=== PATIENT | female | born 2000 | race Caucasian/White ===

== ENCOUNTER 2019-03-11 05:25 | Inpatient (IN) | payer OTHER ==
[~2019-03-11] VITALS: Ht 162.6 cm; Wt 56.7 kg
[2019-03-11 05:26] VITALS: BP 128/83
[2019-03-11 06:00] LABS: HEMATOCRIT 41.6 % (37.0-47.0); HEMOGLOBIN 14.5 gm/dL (12.0-15.0); MCH 31.8 pg (26.0-34.0); MCHC 34.8 g/dL (28.0-37.0); MCV 91.5 fL (80.0-100.0); MPV 8.3 fl. (7.2-11.1); RBC 4.55 mil/uL (4.20-5.00); RDW-CV 13.1 % (10.5-14.5); WBC 10.3 thou/uL (4.0-11.0)
--- NOTE | 2019-03-11 06:13 | NUR ---
SPOKE TO HUNTER AT [facility], PATIENT OVERDOSED FROM [facility] AT 0400, HUNTER FAXED A REPORT INCLUDING TO MONITOR EKG, AND OBSERVE FOR 4 HOURS AND WATCH FOR HYPOTENSION, QT PROLONATION, SEIZURES AND MANAGER HARBOR CHANGES WILL CONTINUE TO MONITOR
[2019-03-11 06:19] LABS: URINE BILIRUBIN NEGATIVE (Negative); URINE BLOOD NEGATIVE (Negative); URINE CLARITY CLEAR; URINE COLOR YELLOW; URINE GLUCOSE-RANDOM NEGATIVE (Negative); URINE KETONES NEGATIVE (Negative); URINE LEUKOCYTES TRACE (Negative); URINE NITRITE POSITIVE (Negative); URINE PROTEIN NEGATIVE (Negative); URINE UROBILINOGEN 0.2 E.U./dl (0.2-1.0)
[2019-03-11 06:22] LABS: CALCIUM 9.1 mg/dL (8.5-10.1); CREATININE 0.9 mg/dL (0.6-1.3); POTASSIUM 3.1 mmol/L (3.5-5.1)
[2019-03-11 06:26] LABS: ALBUMIN 4.2 g/dL (3.4-5.0); SALICYLATE < 2.8 mg/dL (2.8-20.0); TOTAL BILIRUBIN 0.9 mg/dL (<0.1-1.0); TOTAL PROTEIN 7.5 g/dL (6.4-8.2)
[2019-03-11 06:28] LABS: AMP/METHAMP Negative (Negative); BARBITURATES Negative (Negative); BENZODIAZEPINES Negative (Negative); COCAINE POSITIVE (Negative); METHADONE Negative (Negative); OPIATES Negative (Negative); PCP Negative (Negative); THC POSITIVE (Negative)
[2019-03-11 06:28] LABS: ACETAMINOPHEN < 2 ug/mL (10-30); ALCOHOL < 10 mg/dL (<10)
[2019-03-11 06:31] LABS: CASTS None Seen /LPF (None Seen); MUCUS 0-3 Light strn/LPF (None Seen); SQUAMOUS >10 Many /LPF (0-3); URINE RBC None Seen /HPF (0-2); URINE WBC 6-15 Few /HPF (0-5)
[2019-03-11 06:32] LABS: BACTERIA >30 Many /HPF (None Seen); CRYSTALS None Seen /LPF (None Seen)
--- NOTE | 2019-03-11 07:28 | NUR ---
SPOKE WITH ZANE FROM [employer] [employer] AND UPDATED ON PT CURRENT CONDITION. RECOMMENDED TO CHECK MAGNESIUM LEVELS AND TREAT ACCORDING TO INFORMATION SHE STATES SHE WILL FAX OVER. REPEAT EKG IN 1 HOUR (0830).
[2019-03-11 13:11] VITALS: BP 115/84
[2019-03-11 13:30] VITALS: BP 114/69
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
--- NOTE | 2019-03-11 16:00 | NUR ---
PATIENT SHOWERING WITH MOM AND 1:1 PRESENT IN THE BATHROOM.
--- NOTE | 2019-03-11 18:48 | NUR ---
IV SITE WENT BAD - ATTEMPTED TO REPLACE X 2. RN CALLED FOR ASSISTANCE TO GET REPLACED TO RESUME IVF.
[2019-03-11 20:00] VITALS: BP 116/59; BP 117/84
[2019-03-12] VITALS: BP 118/67
--- NOTE | 2019-03-12 00:30 | NUR ---
PT SLEEPING QUIETLY, SITTER AT BEDSIDE. IVF INFUSING PER PUMP. NO S/SX OF DISTRESS NOTED. TELE SR. WILL CONTINUE TO MONITOR AND PROVIDE CARES NEEDED.
--- NOTE | 2019-03-12 00:35 | NUR ---
TRANSFER OF CARE REPORT GIVEN TO AFIA MORALES. ALLOWED FOR QUESTIONS.
[2019-03-12 04:00] VITALS: BP 110/77
--- NOTE | 2019-03-12 05:28 | NUR ---
PT HAS BEEN SLEEPING QUIETLY WITHOUT COMPLAINT SINCE I ASSUMED CARE. SITTER AT BEDSIDE. IVF INFUSING PER PUMP ORDERED. CALL LITE IN [facility]. NO LABS THIS MORNING. TELE SR. NO COMPLAINTS OF PAIN OR PROBLEMS.
[2019-03-12 07:15] VITALS: BP 112/66
--- NOTE | 2019-03-12 08:19 | NUR ---
INITAL ASSESSMENT COMPLETED CHARTED. VSS. TRACING SR ON MONITOR. PT CONTINUES WITH 1:1 SITTER FOR SI PRECAUTIONS. PT STATES SHE NO LONGER FEELS LIKE SHE WANTS TO HURT HERSELF. HOURLY ROUNDING IN PLACE. CLWR.
[2019-03-12 11:15] VITALS: BP 112/66
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
[2019-03-12 12:16] VITALS: BP 116/82
--- NOTE | 2019-03-12 12:36 | NUR ---
CREDIT RELATIONSHIP MANAGER INFORMED THAT THE PATIENT IS MEDICALLY STABLE TO TRANSFER TO INPATIENT PSYCH. D/C RUBBER MIXER SPOKE TO INTAKE AT [facility] TO INFORM OF THE REFERRAL AND NEED FOR AN INPATIENT PSYCH BED. D/C RUBBER MIXER FAXED PATIENT'S FACESHEET, E.R. SUMMARY, H&P, AND MED LIST. CM WILL REMAIN AVAILABLE TO ASSIST AND FOLLOW NEEDED.
--- NOTE | 2019-03-12 12:37 | EKG ---
[place] [address] ELECTROCARDIOGRAM REPORT Name: RUBY BUTTERFIELD Room: [address] ADM IN ..#: [id number] Admission: 03/11/19 Attend Phys: Denia Rodas Discharge: Date of : [birth year] Report #: [id number] THIS REPORT FOR: //name// [facility] ED Test Date: 2019-03-11 Test Time: 05:29:31 Pat Name: RUBY BUTTERFIELD Department: Room: [facility] Gender: F Cad Cam Programmer: [place] : 2000 Requested By: Juliana Guardado Order Number: [id number] MD: Joel Celestin Measurements Intervals [place] Rate: 106 P: 55 NC: 145 QRS: 73 QRSD: 106 T: 56 QT: 365 QTc: 485 Interpretive Statements Sinus tachycardia RSR' in V1 or V2, right VCD or RVH Borderline prolonged QT interval No previous ECG available for comparison Electronically Signed On 03-12-2019 12:37:15 CDT by Joel Celestin [email or web address] <ELECTRONICALLY SIGNED> By: Joel Celestin MD, [facility] 03/12/19 1237 0529 0529 Joel Celestin MD, [facility] /EPI
--- NOTE | 2019-03-12 12:39 | EKG ---
[place] [address] ELECTROCARDIOGRAM REPORT Name: RUBY BUTTERFIELD Room: [address] ADM IN .R.#: [id number] Admission: 03/11/19 Attend Phys: Denia Rodas Discharge: Date of : [birth year] Report #: [id number] THIS REPORT FOR: //name// [facility] ED Test Date: 2019-03-11 Test Time: 08:27:54 Pat Name: RUBY BUTTERFIELD Department: Room: [facility] Gender: F Ammonia Still Operator: : 2000 Requested By: Keshav Castellon Order Number: [id number] MD: Joel Celestin Measurements Intervals [place] Rate: 92 P: 68 MO: 149 QRS: 81 QRSD: 104 T: 68 QT: 366 QTc: 453 Interpretive Statements Sinus rhythm No previous ECG available for comparison Electronically Signed On 03-12-2019 12:39:30 CDT by Joel Celestin [email or web address] <ELECTRONICALLY SIGNED> By: Joel Celestin MD, [facility] 03/12/19 1239 0827 08 Joel Celestin MD, [facility] /EPI
[2019-03-12 13:18] LABS: CALCIUM 8.7 mg/dL (8.5-10.1); CREATININE 0.7 mg/dL (0.6-1.3)
[2019-03-12 15:46] VITALS: BP 124/92
--- NOTE | 2019-03-12 15:49 | NUR ---
TELEPSYCH CONSULTED. DURING TELE PSYCH PT BECAME VERY ANGRY YELLING AND CURSING AT THE MONITOR. PT VERY UPSET AT GOING TO INPATIENT PSYCH. VSS. SR ON MONITOR. [facility] TO TRANSPORT PT TO [facility].
== END 2019-03-12 16:40 | DRG 918 ==
LOC: M.ERS 05:25 → M.TBA-ER 07:57 → M.2W 13:34
PROVIDERS: Personal Emergency Response Attendant; ADMIT Internal Medicine
DX: T43.222A Poisoning by selective serotonin reuptake inhibitors, intentional self-harm, initial encounter (principal); F12.90 Cannabis use, unspecified, uncomplicated; F14.90 Cocaine use, unspecified, uncomplicated; F17.210 Nicotine dependence, cigarettes, uncomplicated; R27.0 Ataxia, unspecified; R04.0 Epistaxis; F32.9 Major depressive disorder, single episode, unspecified; Y92.89 Other specified places as the place of occurrence of the external cause

== ENCOUNTER 2020-01-16 12:14 | Emergency (ER) | payer OTHER ==
[~2020-01-16] VITALS: Ht 162.6 cm; Wt 72.6 kg
[2020-01-16 12:33] VITALS: BP 132/82
== END 2020-01-16 13:08 | disposition home or self-care (01) ==
LOC: M.ERS 12:14
DX: S51.812A Laceration without foreign body of left forearm, initial encounter (principal); F32.9 Major depressive disorder, single episode, unspecified; Z88.8 Allergy status to other drugs, medicaments and biological substances; X83.8XXA Intentional self-harm by other specified means, initial encounter; Y93.89 Activity, other specified; Y92.89 Other specified places as the place of occurrence of the external cause; Y99.8 Other external cause status

== ENCOUNTER 2020-01-24 15:19 | Emergency (ER) | payer OTHER ==
[~2020-01-24] VITALS: Ht 165.1 cm; Wt 72.6 kg
[2020-01-24] MEDS ORDERED: [UNRECOGNIZED DRUG - REMARK] (15:46)
[2020-01-24] MEDS ORDERED: TOPAMAX100 MG PO (15:46)
[2020-01-24 16:53] VITALS: BP 105/70
== END 2020-01-24 16:53 | disposition home or self-care (01) ==
LOC: M.ERS 15:19
DX: S61.512D Laceration without foreign body of left wrist, subsequent encounter (principal); F32.9 Major depressive disorder, single episode, unspecified; Z88.8 Allergy status to other drugs, medicaments and biological substances; X58.XXXD Exposure to other specified factors, subsequent encounter

== ENCOUNTER 2020-05-19 10:57 | Emergency (ER) | payer OTHER ==
[~2020-05-19] VITALS: Ht 165.1 cm; Wt 72.6 kg
[~2020-05-19 10:57] MED LIST: TOPAMAX100 MG PO; [UNRECOGNIZED DRUG - REMARK]
[2020-05-19] MEDS ORDERED: NORCO 5-325 TA1 EAC2 PO (11:46)
[2020-05-19 11:52] VITALS: BP 130/75
== END 2020-05-19 11:53 | disposition home or self-care (01) ==
LOC: M.ERS 10:57
DX: S92.415A Nondisplaced fracture of proximal phalanx of left great toe, initial encounter for closed fracture (principal); F32.9 Major depressive disorder, single episode, unspecified; Z88.8 Allergy status to other drugs, medicaments and biological substances; W22.8XXA Striking against or struck by other objects, initial encounter; Y93.72 Activity, wrestling; Y92.89 Other specified places as the place of occurrence of the external cause; Y99.8 Other external cause status